=== PATIENT | female | born 1955 | race Caucasian/White ===

== ENCOUNTER 2024-12-13 08:26 | Day surgery (SDC) | payer OTHER ==
[2024-12-10 13:03] VITALS: BMI 28.6
[2024-12-13] MEDS ORDERED: MIDAZOLAM HCL 2 MG/2 ML SINGLE DOSE VIAL ONE ×2 (09:43→11:31)
[2024-12-13] MEDS ORDERED: PROPOFOL 60 ML ONE (09:43)
[2024-12-13] MEDS ORDERED: LIDOCAINE HCL/PF 2% SDV 5ML VIAL ONE (09:43)
[2024-12-13 10:00] LABS: INR 0.94 (0.83-1.09); PROTHROMBIN TIME (PATIENT) 10.7 SEC (9.7-13.0)
[2024-12-13 10:03] LABS: ACTIVATED PTT 32.7 SECONDS (25.2-36.5)
[2024-12-13] MEDS ORDERED: ONDANSETRON 4 MG/2 ML VIAL IVPUSH PRN (10:24)
[2024-12-13] MEDS ORDERED: VANCOMYCIN 1,000 MG VIAL (RESTRICTED TO ID ONLY) ONE ×2 (10:29→12:20)
[2024-12-13] MEDS ORDERED: ACETAMINOPHEN INJECTION 100 ML ONE (11:22)
[2024-12-13] MEDS ORDERED: ROPIVACAINE HCL/PF 100 MG/20 ML VIAL ONE (11:22)
[2024-12-13] MEDS ORDERED: ceFAZolin SODIUM 1 GM VIAL ONE (12:13)
[2024-12-13] MEDS ORDERED: PROPOFOL 20 ML ONE ×2 (13:22→13:59)
[2024-12-13] MEDS ORDERED: TRANEXAMIC ACID 1000 MG/10 ML VIAL ONE (13:31)
[2024-12-13] MEDS ORDERED: BUPIVICAINE 0.25%/MORPH PF/KETOROLAC - 51ML DISP.SYRINGE IA ONE (13:42)
[2024-12-13] MEDS ORDERED: ONDANSETRON 4 MG/2 ML VIAL ONE (13:44)
[2024-12-13] MEDS ORDERED: MAG HYDROX/AL HYDROX/SIMETH 30 ML UNIT-DOSE CUP PO PRN (14:44)
[2024-12-13] MEDS ORDERED: oxyCODONE HCL 5 MG TABLET PO PRN (14:47)
[2024-12-13] MEDS: metFORMIN HCL 500 MG TABLET (FP) PO SCH (18:01)
[2024-12-13] MEDS: LACTATED RINGERS SOLUTION 1,000 ML IV SCH ×2 (18:01→18:02)
[2024-12-13] MEDS: SENNOSIDES/DOCUSATE COMBO (SENNA PLUS) TABLET (UD) PO SCH (21:20)
[2024-12-13] MEDS: oxyCODONE HCL 5 MG TABLET PO PRN (21:21)
[2024-12-13] MEDS: GABAPENTIN 300 MG CAPSULE PO SCH (21:22)
[2024-12-13] MEDS: CEFAZOLIN 2 GM/D5W 2 GM/50 ML ML IVPB SCH (21:45)
[2024-12-13] MEDS: ACETAMINOPHEN 500 MG TABLET (FP) PO SCH (21:45)
[2024-12-13 22:08] VITALS: RESP 18
[2024-12-14 08:38] LABS: HEMATOCRIT 34.5 % (34.1-44.9); HEMOGLOBIN 10.8 g/dL (11.2-15.7); MCHC 31.3 g/dl (32.2-35.5); MEAN CELL VOLUME 93.2 fl (79.4-94.8); MEAN PLT VOLUME 9.4 fl (9.4-12.3); PLATELET COUNT # 237 x10^3/uL (182-369); RDW 14.4 % (12.4-16.4)
[2024-12-14 09:08] LABS: CALCIUM 8.3 mg/dl (8.5-10.1); CREATININE 0.6 mg/dl (0.6-1.3); POTASSIUM 4.4 mmol/L (3.5-5.1)
[2024-12-14] MEDS ORDERED: PATIENT'S OWN MEDICATION (NON-FORMULARY) (Dapagliflozin Propanediol 10 MG Tablet) PO SCH (10:00)
[2024-12-14] MEDS ORDERED: PATIENT'S OWN MEDICATION (NON-FORMULARY) (Lansoprazole [Prevacid] 30 MG Capsule.Dr) PO SCH (10:00)
[2024-12-14] MEDS: GABAPENTIN 100 MG CAPSULE PO SCH (10:16)
[2024-12-14] MEDS: ASPIRIN COATED 81 MG TABLET.EC PO SCH (10:16)
[2024-12-14] MEDS: MULTIVITAMINS (DAILY MVI) TABLET (FP) PO SCH (10:16)
[2024-12-14] MEDS: LOSARTAN POTASSIUM 25 MG TABLET PO SCH (10:17)
[2024-12-14] MEDS: VENLAFAXINE HCL 75 MG E.R. CAPSULES PO SCH (10:17)
[2024-12-14] MEDS: PANTOPRAZOLE 40 MG TABLET PO SCH (10:17)
[2024-12-14] MEDS: ONDANSETRON 4 MG/2 ML VIAL IVPUSH PRN (12:14)
[2024-12-14 15:47] VITALS: BP 124/70; PULSE 72; TEMP 987
[2024-12-14] MEDS ORDERED: ATORVASTATIN CA 80 MG TABLET (FP) PO SCH (22:00)
== END 2024-12-14 15:05 | disposition home or self-care (01) ==
LOC: FASUSAT 08:26 → SUATTDRO 08:26 → FM/S 16:42 → FASUSAT 12-14 15:05
PROVIDERS: ATTEND Internal Medicine
PROC: 8E0Y0CZ Robotic Assisted Procedure of Lower Extremity, Open Approach (ICD-10-PCS; 2024-12-13)
PROC: 0SR904A Replacement of Right Hip Joint with Ceramic on Polyethylene Synthetic Substitute, Uncemented, Open Approach (ICD-10-PCS; principal; 2024-12-13 12:39)
DX: M16.11 Unilateral primary osteoarthritis, right hip (principal)
CPT/HCPCS: 20985; 27130; C1776; S2900; 36415; 73502-TC-RT-FY; 80048; 82962; 85027; 85610; 85730; 88305-TC; 88311-TC; 94760; 97010-GP; 97116-GP; 97162-GP; J0131